=== PATIENT | female | born 1975 | race Two or more races ===

== ENCOUNTER 2017-05-22 07:11 | Emergency (ER) | payer SELFPAY ==
[~2017-05-22] VITALS: Ht 172.7 cm; Wt 77.1 kg
[2017-05-22 07:50] VITALS: BP 151/115
[2017-05-22] MEDS ORDERED: Dicyclomine HCl 10mg/5ml oral soln ORAL ONE (08:00)
[2017-05-22] MEDS ORDERED: Ketorolac 30mg Inj IV ONE (08:00)
--- NOTE | 2017-05-22 08:39 | Emergency Room Report ---
History of Present Illness General Chief Complaint: Abdominal Pain Source: Patient, Family Member Present Illness HPI [id number] walk-in, tourist from [place], just landed yesterday with acute onset right sided lower abd pain with diarrhea. No nausea/vomiting. Known 1.5cm uterine fibroid, "was ok on ultrasound last week." Denies associated fever/ chills, vaginal bleeding, past kidney/gallstone, past abd surgery. Ate chicken and rice on plane, hasnt eaten anything here yet. No other medical problems. Allergies: Coded Allergies: No Known Allergies (Unverified , 05/22/17) Patient History Past Medical History: other - uterine fibroid Past Surgical History: none Pertinent Family History: none Social History: Denies: alcohol use, drug use, smoking Last Menstrual Period: 05/15/17 Now: No Immunizations: UTD Reviewed Nursing Documentation: PMH: Agreed, PSxH: Agreed Nursing Documentation-PMH Past Medical History: No Stated History Review of Systems All Other Systems: negative except mentioned in HPI Physical Exam Vital Signs Date Time Temp Pulse Resp B/P Pulse Ox O2 Delivery O2 Flow Rate FiO2 05/22/17 07:20 98.4 79 15 150/96 99 Room Air Sp02 EP Interpretation: reviewed, abnormal General Appearance: normal inspection, well appearing, no apparent distress, alert, GCS 15, non-toxic Head: normocephalic, atraumatic Eyes: bilateral eye EOMI, bilateral eye PERRL ENT: normal ENT inspection, hearing grossly normal, normal voice Neck: normal inspection, full range of motion, supple, no bony tend Respiratory: normal inspection, lungs clear, normal breath sounds, no respiratory distress, no retraction, no wheezing Cardiovascular #1: regular rate, rhythm, no edema Gastrointestinal: normal inspection, normal bowel sounds, soft, no guarding, no hernia, other - Palpation only to deep palpation of lower right abdomenb Genitourinary: no CVA tenderness Musculoskeletal: normal inspection, back normal, normal range of motion, Luanne' s Sign negative Neurologic: normal inspection, alert, oriented x3, responsive, staple laster III-XII nml as tested, motor strength/tone normal, speech normal Psychiatric: normal inspection, judgement/insight normal, mood/affect normal Skin: normal inspection, normal color, no rash Medical Decision Making Diagnostic Impression: Primary Impression: Abdominal pain, right lower quadrant Additional Impressions: Diarrhea Qualified Codes: R19.7 - Diarrhea, unspecified UTI (urinary tract infection) Qualified Codes: N30.00 - Acute cystitis without hematuria Colitis ER Course Abd pain, right lower - UA grossly infected - No leuks. Afebrile - CTAP shows cystitis, ?colitis as well. No other acute findings to explain abd pain. - Empiric Rocephin given in ED. Urine Cx pending. Rx Cipro for empiric Pyelo given radiation to flank - Will also Rx Pepcid/Bentyl/Zofran for gastroenteritis - Overall well appearing, tolerating PO, no nausea DC home Last Vital Signs Date Time Temp Pulse Resp B/P Pulse Ox O2 Delivery O2 Flow Rate FiO2 05/22/17 07:20 98.4 79 15 150/96 99 Room Air Status: improved Disposition: HOME, SELF-CARE Scripts Famotidine (PEPCID) 20 Mg Tablet 20 MG ORAL BID for 7 Days, #14 TAB 0 Refills Prov: ANNE LLOYD M.D. 05/22/17 Ondansetron Odt* (ZOFRAN ODT*) 4 Mg Tab.rapdis 4 MG ORAL BID Y for Nausea & Vomiting for 7 Days, #14 TAB 0 Refills Prov: ANNE LLOYD M.D. 05/22/17 Dicyclomine Hcl* (BENTYL*) 10 Mg Capsule 10 MG ORAL BID for 3 Days, #6 CAP Prov: ANNE LLOYD M.D. 05/22/17 Ciprofloxacin Hcl* (CIPROFLOXACIN HCL*) 500 Mg Tablet 500 MG ORAL Q12H for 7 Days, #14 TAB 0 Refills Prov: ANNE LLOYD M.D. 05/22/17 Referrals: NON PHYSICIAN (PCP) ANNE LLOYD M.D. May 22, 2017 08:39
[2017-05-22 09:08] LABS: BASOPHILS % (AUTO) 0.4 % (0.0-2.0); EOSINOPHILS % (AUTO) 1.1 % (0.0-3.0); LYMPHOCYTES % (AUTO) 19.6 % (20.0-45.0); MEAN CORPUSCULAR HEMOGLOBIN 31.4 PG (27.0-31.0); MEAN CORPUSCULAR HGB CONC 32.1 G/DL (32.0-36.0); MEAN CORPUSCULAR VOLUME 98 FL (80-99); MEAN PLATELET VOLUME 9.8 FL (6.5-10.1); MONOCYTES % (AUTO) 7.1 % (1.0-10.0); NEUTROPHILS % (AUTO) 71.8 % (45.0-75.0); PLATELET COUNT 157 K/UL (150-450); RED BLOOD COUNT 4.29 M/UL (4.20-5.40); RED CELL DISTRIBUTION WIDTH 12.5 % (11.6-14.8); WHITE BLOOD COUNT 6.7 K/UL (4.8-10.8)
[2017-05-22 09:11] LABS: ALANINE AMINOTRANSFERASE 10 U/L (3-33); ALBUMIN/GLOBULIN RATIO 1.4 (1.0-2.7); ANION GAP 18 (5-15); ASPARTATE AMINO TRANSFERASE 15 U/L (5-40); CALCIUM 9.4 mg/dL (8.6-10.2); CARBON DIOXIDE 23 mEQ/L (20-30); CHLORIDE 102 mEQ/L (98-107); CREATININE 0.7 mg/dL (0.5-0.9); GLOMERULAR FILTRATION RATE > 60 mL/min (>60); HEMOLYSIS 1; LIPASE 37 U/L (< 60); POTASSIUM 3.9 mEQ/L (3.4-4.9); SODIUM 143 mEQ/L (135-145); TOTAL PROTEIN 7.1 g/dL (6.6-8.7)
[2017-05-22 09:26] LABS: APPEARANCE,URINE SLIGHTLY CLOUDY
[2017-05-22 09:27] LABS: KETONES,URINE 2+ (NEGATIVE); LEUKOCYTE ESTERASE ,URINE 1+ (NEGATIVE); NITRITE,URINE NEGATIVE (NEGATIVE); PROTEIN,URINE 1+ (NEGATIVE); UROBILINOGEN,URINE NORMAL MG/DL (0.0-1.0)
[2017-05-22 09:28] LABS: BACTERIA,URINE FEW /HPF; SQUAMOUS EPITHELIAL CELL,UR MODERATE /LPF (NONE/OCC)
[2017-05-22] MEDS ORDERED: cefTRIAXone 1 GM in NS 55 ML IVPB ONE (09:45)
[2017-05-22] MEDS ORDERED: SYNTHROID125 MCG ORAL (10:35)
[2017-05-22] MEDS ORDERED: BENTYL10 MG ORAL (10:55)
[2017-05-22] MEDS ORDERED: ZOFRAN ODT4 MG ORAL (10:55)
[2017-05-22] MEDS ORDERED: PEPCID20 MG ORAL (10:55)
[2017-05-22] MEDS ORDERED: CIPROFLOXACIN500 M2 ORAL (10:55)
[2017-05-22 11:19] VITALS: BP 135/74
--- NOTE | 2017-05-22 12:26 | Diagnostic Imaging Report ---
Indications: Acute onset right-sided lower abdominal pain with diarrhea Technique: Continuous helical CT imaging of the abdomen and pelvis was performed with automatic exposure control following administration of nonionic IV contrast only, on a Siemens sensation [address] scanner. Axial, coronal, sagittal images were reconstructed at 5 mm slice thickness. No oral contrast was administered per requesting physician's order, despite no contraindications listed in either submitted clinical data or tech note.. CTDI volume(s): 17 mGy Total DLP: 971 mGy-cm Findings: Comparison: None Lack of oral contrast limits evaluation of gastrointestinal tract, nondilated throughout. Appendix unremarkable. Portions of left-sided colon collapsed, further limiting evaluation. Mural thickening not excludable. No additional obvious mural thickening, adjacent stranding, extraluminal gas or fluid collections identified. Subtle suggestion of small solid mass in the uterine fundus. Apparent mild mural thickening of urinary bladder wall. Liver, gallbladder, pancreas, spleen, adrenal glands, kidneys, unopacified ureters, bilateral adnexal regions, vascular structures, retroperitoneum, mesentery, remainder visualized abdominopelvic anatomy unremarkable. Pleural-based linear densities and dependent portions both lung bases. Disc space narrowing with marginal osteophyte formation, vacuum phenomenon and lumbar, lower thoracic spine. Mild thoracolumbar scoliosis. IMPRESSION: Unremarkable appendix--no evidence of acute appendicitis Apparent mild mural thickening of urinary bladder wall-underdistention versus hypertrophy or cystitis No other evidence of acute abdominopelvic disease, with limitation as described. Subtle but potentially significant abnormalities the gastrointestinal tract may be missed. Repeat CT scan with full oral and IV contrast preparation recommended for more complete evaluation, as clinically indicated Questionable uterine mass, most likely fibroid if real Pulmonary bibasal subsegmental atelectasis Degenerative spondylosis and scoliosis
== END 2017-05-22 11:22 | disposition home or self-care (01) ==
LOC: EMR 08:08
DX: R10.31 Right lower quadrant pain (principal); R19.7 Diarrhea, unspecified; N30.00 Acute cystitis without hematuria; K52.9 Noninfective gastroenteritis and colitis, unspecified; M47.9 Spondylosis, unspecified; M41.9 Scoliosis, unspecified; J98.11 Atelectasis
CPT/HCPCS: 36415; 74177; 80053; 81003; 81025; 83690; 85025; 87086; 96360; 96374; 99284; J0696; J1885; Q9967